=== PATIENT | female | born 1965 | race Caucasian/White ===

== ENCOUNTER → 2016-10-15 | Outpatient (CLI) | payer BC ==
[~2016-10-15] MED LIST: ADDERALL XR20 MG PO; CALCIFEROL50000 IU PO; CYMBALTA20 MG PO; CYMBALTA30 MG PO; CYMBALTA60 MG PO; PHENTERMINE H37.5 MG PO; PHENTERMINE37.5 MG PO; TOPAMAX25 MG PO; TOPAMAX50 MG PO; VITAMIN D31000 IU PO; WELLBUTRIN SR150 MG PO
== END ==
LOC: MC.RAD 07:00
DX: Z12.31 Encounter for screening mammogram for malignant neoplasm of breast (principal)

== ENCOUNTER 2018-01-12 16:00 | Outpatient (RCR) | payer BC | END 2018-01-13 13:14 | disposition home or self-care (01) | LOC: MKS.ESL.OT 16:00 | DX: M79.642 Pain in left hand (principal) ==

== ENCOUNTER → 2018-11-03 | Outpatient (CLI) | payer BC | LOC: MC.RAD 07:49 | DX: Z12.31 Encounter for screening mammogram for malignant neoplasm of breast (principal) ==

== ENCOUNTER 2019-11-29 13:07 | Outpatient (CLI) | payer BC ==
[~2019-11-29] VITALS: Ht 162.6 cm; Wt 115.0 kg
[2019-11-29] VITALS (8 sets, daily range): BP systolic 99–134; BP diastolic 44–88; PULSE 52–79; TEMP 97.5–98.8
[2019-11-29 13:33] LABS: BASO # 0.1 (0.0-0.2); BASO % 0.8 % (0.0-2.0); EOS # 0.2 (0.0-0.7); EOS % 2.8 % (0-4.0); GRAN % 59.2 % (42.2-75.2); HEMOGLOBIN 10.6 g/dl (12.5-16.0); LYMPH # 2.5 (1.2-3.4); LYMPH % 29.7 % (20.0-51.0); MEAN CELL VOLUME 85 fl (80.0-100.0); MEAN CORPUSCULAR HEMOGLOBIN 26 pg (27.0-31.0); MEAN CORPUSCULAR HGB CONC 31 g/dl (33.0-37.0); MEAN PLATELET VOLUME 10.3 fl (7.4-10.4); MONO # 0.6 (0.1-0.6); MONO % 7.1 % (1.7-9.3); PLATELET COUNT 492 K/mm3 (130-400); RED BLOOD COUNT 4.01 M/mm3 (4.10-5.30); REDCELL DISTRIBUTION WIDTH-CV 13.1 % (11.5-14.5)
[2019-11-29 13:44] LABS: INR 1.1 (0.8-3.0); PROTHROMBIN TIME 12.2 SECONDS (9.7-12.8)
[2019-11-29 13:50] LABS: ALBUMIN 4.2 gm/dL (3.5-5.0); BILIRUBIN,TOTAL 0.3 mg/dL (0.0-1.0); CALCIUM 9.3 mg/dL (8.4-10.2); CREATININE, serum 1.12 (0.52-1.25); POTASSIUM 4.3 mmol/L (3.4-5.0); TOTAL PROTEIN 7.8 gm/dL (6.4-8.2)
[2019-11-29] MEDS ORDERED: CELEBREX 1100 MG/CAP PO (14:03)
[2019-11-29] MEDS ORDERED: LEXAPRO20 MG PO (14:04)
[2019-11-29] MEDS ORDERED: PRILOSEC 20MG20 MG PO (14:06)
[2019-11-29] MEDS ORDERED: PERCOCET 325 MG1 TA2 PO (15:47)
--- NOTE | 2019-11-29 16:55 | NUR ---
Patient here from PACU and report received from Jazmín PEREZ. Patient updated on plan of care and stable at this time. Comfortable and no needs at this time. 1800: Dr. Johnson at bedside and updating patient on plan of care. Vaginal packing removed and minimal bleeding noted. Rice catheter removed at this time per [facility] RN STUDENT, patient tolerates well and plan of care discussed. Dr. Johnson orders for patient to eat and drink as tolerated. Ambulate and void x1. After 2 hours after packing removed if bleeding is WNL, patient can be discharged.
--- NOTE | 2019-11-29 19:30 | NUR ---
Up to bathroom with standby assist, unable to void at this time.
--- NOTE | 2019-11-29 20:30 | NUR ---
Up to bathroom with steady gait. Voids 400cc.
== END 2019-11-29 21:20 | disposition home or self-care (01) ==
LOC: COL.ER 13:07 → OB 13:07 → EDSTATUS 15:00 → OB 16:55 → COL.ER 16:55 → OB 21:20
PROVIDERS: Emergency Medicine
DX: N99.3 Prolapse of vaginal vault after hysterectomy (principal); N92.0 Excessive and frequent menstruation with regular cycle; E66.9 Obesity, unspecified; Z68.42 Body mass index [BMI] 45.0-49.9, adult; M19.90 Unspecified osteoarthritis, unspecified site; D64.9 Anemia, unspecified; F32.9 Major depressive disorder, single episode, unspecified; K21.9 Gastro-esophageal reflux disease without esophagitis
CPT/HCPCS: OP; A4314; J1100; J2405; J2704; J2710; J3010; J7030; J7120

== ENCOUNTER 2021-07-31 10:27 | Day surgery (SDC) | payer BC ==
[~2021-07-31] VITALS: Ht 162.6 cm; Wt 116.4 kg
[~2021-07-31 10:27] MED LIST changes: +CELEBREX 1100 MG/CAP PO; +LEXAPRO20 MG PO; +PERCOCET 325 MG1 TA2 PO; +PRILOSEC 20MG20 MG PO
[2021-07-31 11:49] VITALS: BP 127/86; PULSE 66; TEMP 97.9
[2021-07-31] MEDS ORDERED: CELEBREX 1100 MG/CAP PO (12:32)
[2021-07-31] MEDS ORDERED: DULCOLAX STOOL100 MG PO (12:32)
[2021-07-31] MEDS ORDERED: LEXAPRO20 MG PO (12:33)
[2021-07-31] MEDS ORDERED: IRON TABLETS325 MG PO (12:34)
[2021-07-31] MEDS ORDERED: MULTI VITAMINS1 TAB PO (12:35)
[2021-07-31] MEDS ORDERED: PRILOSEC 20MG20 MG PO ×2 (12:35→12:36)
[2021-07-31 13:30] VITALS: BP 112/76; PULSE 55; TEMP 97.4
[2021-07-31 13:45] VITALS: BP 112/76; PULSE 49
== END 2021-07-31 14:15 | disposition home or self-care (01) ==
LOC: SDCO 10:27
DX: Z12.11 Encounter for screening for malignant neoplasm of colon (principal); D50.9 Iron deficiency anemia, unspecified; E66.01 Morbid (severe) obesity due to excess calories; Z68.41 Body mass index [BMI] 40.0-44.9, adult
CPT/HCPCS: J2704; J7030

== ENCOUNTER 2022-06-09 08:00 | Outpatient (RCR) | payer BC ==
[~2022-06-09 08:00] MED LIST changes: +DULCOLAX STOOL100 MG PO; +IRON TABLETS325 MG PO; +MULTI VITAMINS1 TAB PO
== END 2022-06-27 | disposition home or self-care (01) ==
LOC: MKS.ESL.PT
DX: R42 Dizziness and giddiness (principal)